=== PATIENT | female | born 1970 | race Caucasian/White ===

== ENCOUNTER 2017-11-28 09:36 | Emergency (ER) | payer OTHER | END 2017-11-28 11:02 | disposition home or self-care (01) | LOC: M ED 09:36 | DX: S93.612A Sprain of tarsal ligament of left foot, initial encounter (principal); X50.1XXA Overexertion from prolonged static or awkward postures, initial encounter; Y92.098 Other place in other non-institutional residence as the place of occurrence of the external cause; Z79.899 Other long term (current) drug therapy | CPT/HCPCS: 73630 ==

== ENCOUNTER 2018-01-11 19:54 | Emergency (ER) | payer OTHER ==
[2018-01-11] MEDS: LIDOCAINE VISCOUS 2% SOLN 15ML UDC SS (21:07)
[2018-01-11] MEDS: OXYCODONE/APAP 5MG/325MG(BULK FOR ED) 1 TABLET PO (22:04)
== END 2018-01-11 22:10 | disposition home or self-care (01) ==
LOC: M ED 19:54
DX: R10.13 Epigastric pain (principal); T17.898A Other foreign object in other parts of respiratory tract causing other injury, initial encounter; W57.XXXA Bitten or stung by nonvenomous insect and other nonvenomous arthropods, initial encounter; Y92.89 Other specified places as the place of occurrence of the external cause
CPT/HCPCS: 99283